=== PATIENT | male | born 1980 | race African-American/Black ===

== ENCOUNTER 2016-12-05 21:51 | Emergency (ER) | payer MEDICAID ==
[~2016-12-05] VITALS: Ht 172.7 cm; Wt 100.0 kg
[2016-12-05] MEDS ORDERED: IBUPROFEN 600MG TABLET PO ONE (23:45)
[2016-12-06 01:00] VITALS: BP 121/69
== END 2016-12-06 01:00 | disposition home or self-care (01) ==
LOC: ER 21:51
DX: S80.01XA Contusion of right knee, initial encounter (principal); F17.200 Nicotine dependence, unspecified, uncomplicated; F12.10 Cannabis abuse, uncomplicated; W50.2XXA Accidental twist by another person, initial encounter; Y93.61 Activity, american tackle football; Y92.89 Other specified places as the place of occurrence of the external cause; Y99.8 Other external cause status
CPT/HCPCS: 73562; 99284; L1830

== ENCOUNTER 2018-08-06 10:01 | Emergency (ER) | payer MEDICAID ==
[~2018-08-06] VITALS: Ht 180.3 cm; Wt 110.0 kg
[2018-08-06] MEDS ORDERED: SODIUM CHLORIDE 0.9% 1,000 ML IV ONE (10:46)
[2018-08-06] MEDS ORDERED: LORAZEPAM 2MG/ML CPJ IV ONE (11:15)
[2018-08-06 12:15] LABS: BASOPHILS % 0.5 % (0.0-2.0); EOSINOPHILS % 1.9 % (0.0-5.0); HEMATOCRIT. 42.7 % (42.0-52.0); LYMPHOCYTES % 23.7 % (20.0-50.0); MEAN CORPUSCULAR HEMOGLOBIN 27.4 pg (28.0-32.0); MEAN CORPUSCULAR VOLUME 83.5 fL (80.0-94.0); MEAN PLATELET VOLUME 7.7 fl (7.4-10.4); MONOCYTES % 9.7 % (2.0-8.0); NEUTROPHILS % 64.2 % (40.0-76.0); PLATELET 235 x1000/uL (130-400); RED BLOOD CELL COUNT 5.12 mill/uL (4.7-6.1); RED CELL DISTRIBUTION WIDTH 14.5 % (11.6-14.6)
[2018-08-06 12:21] LABS: CHLORIDE 107 mEq/L (98-107)
[2018-08-06 12:26] LABS: ETHANOL BLOOD < 10 mg/dL
[2018-08-06 12:30] LABS: CREATINE KINASE 370 IU/L (39-308)
[2018-08-06 12:50] LABS: *AMPHETAMINES SCREEN URINE NEGATIVE (NEGATIVE)
[2018-08-06 12:51] LABS: *BARBITURATES SCREEN URINE NEGATIVE (NEGATIVE); *BENZODIAZEPINES SCREEN URINE NEGATIVE (NEGATIVE); *COCAINE SCREEN URINE NEGATIVE (NEGATIVE); METHADONE URINE SCREEN NEGATIVE (NEGATIVE); OPIATES URINE SCREEN NEGATIVE (NEGATIVE)
[2018-08-06 12:52] LABS: CANNABINOID URINE SCREEN NEGATIVE (NEGATIVE); PHENCYCLIDINE URINE SCREEN PRESUMTIVE POSITIVE (NEGATIVE)
[2018-08-06 15:15] VITALS: BP 137/83
== END 2018-08-06 15:16 | disposition home or self-care (01) ==
LOC: ER 10:01
DX: F16.188 Hallucinogen abuse with other hallucinogen-induced disorder (principal); E16.2 Hypoglycemia, unspecified; R45.1 Restlessness and agitation; F12.90 Cannabis use, unspecified, uncomplicated
CPT/HCPCS: 36415; 80053; 80305; 80320; 82550; 82962; 84484; 85025; 96361; 96374; 99283; J2060; J7030; Z7610; G0480

== ENCOUNTER 2019-05-12 00:41 | Emergency (ER) | payer MEDICAID ==
[~2019-05-12] VITALS: Ht 175.3 cm; Wt 100.0 kg
[2019-05-12] MEDS ORDERED: BACITRACIN ZINC OINT UDPKT TOP ONE (01:30)
[2019-05-12] MEDS ORDERED: LIDOCAINE HCL/PF 1% 10 MG/ML 5ML VIAL IJ ONE (01:30)
[2019-05-12] MEDS ORDERED: IBUPROFEN 600MG TABLET PO ONE (01:30)
[2019-05-12 02:44] VITALS: BP 149/82
== END 2019-05-12 03:37 | disposition home or self-care (01) ==
LOC: ER 00:41
DX: S21.211A Laceration without foreign body of right back wall of thorax without penetration into thoracic cavity, initial encounter (principal); X58.XXXA Exposure to other specified factors, initial encounter; Y93.89 Activity, other specified; Y92.89 Other specified places as the place of occurrence of the external cause; F12.10 Cannabis abuse, uncomplicated; Y99.8 Other external cause status; Z88.9 Allergy status to unspecified drugs, medicaments and biological substances
CPT/HCPCS: 12007; 99283; A4217; J3490; Z7610

== ENCOUNTER 2019-05-14 15:50 | Emergency (ER) | payer MEDICAID ==
[~2019-05-14] VITALS: Ht 172.7 cm; Wt 78.0 kg
[2019-05-14 21:02] VITALS: BP 121/74
== END 2019-05-14 21:03 | disposition home or self-care (01) ==
LOC: ER 15:50
DX: Z48.00 Encounter for change or removal of nonsurgical wound dressing (principal); F12.90 Cannabis use, unspecified, uncomplicated; F16.10 Hallucinogen abuse, uncomplicated
CPT/HCPCS: 99281

== ENCOUNTER 2019-05-26 11:38 | Emergency (ER) | payer MEDICAID ==
[~2019-05-26] VITALS: Ht 175.3 cm; Wt 102.0 kg
[2019-05-26 11:44] VITALS: BP 132/71
== END 2019-05-26 13:16 | disposition home or self-care (01) ==
LOC: ER 11:38
DX: S21.219D Laceration without foreign body of unspecified back wall of thorax without penetration into thoracic cavity, subsequent encounter (principal); W45.8XXD Other foreign body or object entering through skin, subsequent encounter
CPT/HCPCS: 99281

== ENCOUNTER 2020-01-03 18:17 | Emergency (ER) | payer OTHER ==
[~2020-01-03] VITALS: Ht 177.8 cm; Wt 105.0 kg
[2020-01-03 18:37] VITALS: BP 130/71
== END 2020-01-03 19:58 | disposition home or self-care (01) ==
LOC: ER 18:17
DX: F16.10 Hallucinogen abuse, uncomplicated (principal); F12.10 Cannabis abuse, uncomplicated
CPT/HCPCS: 93005; 99283

== ENCOUNTER 2020-06-30 21:15 | Emergency (ER) | payer MEDICAID, OTHER ==
[~2020-06-30] VITALS: Ht 190.5 cm; Wt 113.0 kg
[2020-06-30 21:24] VITALS: BP 126/78
== END 2020-06-30 21:40 | disposition left against medical advice (07) ==
LOC: ER 21:15
DX: F16.129 Hallucinogen abuse with intoxication, unspecified (principal); R03.0 Elevated blood-pressure reading, without diagnosis of hypertension
CPT/HCPCS: 93005; 99283

== ENCOUNTER 2021-09-03 18:21 | Emergency (ER) | payer OTHER ==
[~2021-09-03] VITALS: Ht 170.2 cm; Wt 98.0 kg
[2021-09-03 18:24] VITALS: BP 130/80
== END 2021-09-03 20:30 | disposition left against medical advice (07) ==
LOC: ER 18:21
DX: Z53.21 Procedure and treatment not carried out due to patient leaving prior to being seen by health care provider (principal)